=== PATIENT | female | born 1945 | race Caucasian/White ===

== ENCOUNTER 2016-09-24 09:46 | Outpatient (CLI) ==
[2016-09-24] MEDS ORDERED: PROLIA SUBCUT STA (10:03)
== END 2016-09-24 09:47 | disposition home or self-care (01) ==
LOC: OPMED 09:46
PROVIDERS: ATTEND Family Medicine
DX: M81.0 Age-related osteoporosis without current pathological fracture (principal)
CPT/HCPCS: 96372

== ENCOUNTER 2016-10-01 13:00 | Outpatient (RCR) ==
--- NOTE | 2016-09-11 16:40 | RS.OPPTEV2 ---
Date of Note: 09/10/16 Visit #: 1 Date of Evaluation: 09/10/16 Payer Source: MEDICARE Surgery Performed?: No Treatment Diagnosis: Low back pain Prior Level of Function.....Patient was independent with: ADL's, Self Care, Caregiving, Ambulation/Mobility, Community Integration/Access Functional Limitations: Self Care, ADL's, Reaching, Pushing, Pulling, Lifting, Carrying, Standing, Bending, Squatting, Ambulation Current Subjective/complaints:: Patient reports low back and hip pain. States she has been receiving injections from Pain Management every 3 months for approximately 4 1/2 years. Reports standing is what really bothers her back and hips. Sitting gives her quick relief. She reports pain into the hips, but not any further into the legs. She denies tingling or numbness in the LE's. She does notice leg weakness. 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 Medical History Medical History: Hypertension, CVA/TIA, Arthritis Medical History Comments:: Scoliosis Smoking Status: Never smoker Hx Home Medications: Norvasc, synthroid, zoloft, cozar, mobic, lortab, norco Patient's Goals: Her goal is to get any relief of back pain. Pain Assessment - Pain Description Pain Location: low back and hip pain Current Pain Intensity: 3/10 Worst Pain Intensity: 5/10 Functional Outcome Measure Oswestry LBP: 42 - G Codes & Severity Modifier G Codes & Modifier: Mobility current CK. Mobility goal CJ Source of G Code score: Oswestry LBP scale Observation - Observation Posture: Forward Head, Rounded Shoulders, Scapula Asymmetry (right significantly higher), Scoliosis (severe curvature) Comments: Patient demonstrates right thoracic convexity and left lumbar convexity. Gait - Gait Pattern Gait Comments: Patient ambulates without an assistive device with trunk lean to her right. - ROM Lumbar Flexion: Hand reach to patellae Sidebending to Left: Reach to Mid-thigh Sidebending to Right: Reach to Lateral Joint Line Lumbar Spine ROM Limitations: Soft Tissue Tightness, Bony Restriction (left side bend limited by curvature of spine) Comments: Lower trunk rotation to the right is limited, rotation to the left is functional. Bilateral LE AROM is WFL's. - Strength Trunk Rotation: 4+ Good + Comments: LE strength hips 4 to 4+ throughout. Knees and ankles 5/5 throughout. - Special Tests SLR Test: Negative Left, Negative Right Seated Dural Stretch Test: Negative Left, Negative Right SI Joint Compression: Negative SI Joint Distraction: Negative Palpation Comments:: Patient reports no tenderness along the thoracic or lumbar spine. No tenderness along the SI joints. Sensation - Sensation Right Lower Extremity: Intact/Normal Left Lower Extremity: Intact/Normal Additional Comments: Additional Comments: Right SLR tighter than the left. In supine, Right SLR to 35 degrees, left 40-45 degrees. Interventions - Exercise/Activities/Manual Therapy Exercises/Activities: NA Manual Therapy: NA - Charges Total Direct Minutes: 55 mins Total Treatment Time: 55 mins Procedures billed for this date of service:: EVAL Low Assessment Assessment: Patient presents with complaints of low back and hip pain. She exhibits significant curvature of the thoracic and lumbar spine, which is more than likely the reason for her pain. She demonstrates an imbalance of muscle length along the spine and in the LE's. She will benefit from stretching and strengthening exercises to help decrease pain in the back and hips. Patient Education: Education of diagnosis, Body/Joint mechanics, Home Exercise Program, Home Safety, Activity Modification, Education of Plan of Care Rehab Potential: Fair Short Term Goals Goal #1: Pt independent in basic HEP. Goal to be met by: 09/25/16 Goal #2: Bilateral SLR to 45 degrees. Goal to be met by: 09/25/16 Goal #3: Lower trunk rotation to the right WFL's. 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 Goal to be met by: 10/15/16 Goal #2: Score on Oswestry LBP scale improved to 32. Goal to be met by: 10/15/16 Goal #3: Pt able to stand and ambulate as needed with minimal low back or hip pain. Goal to be met by: 10/15/16 Plan - Treatment to be Provided Procedures: Therapeutic Exercises, Therapeutic Activity, Patient Education Modalities: Hot Packs - Treatment Plan Frequency: 2-3 X week Duration: 4 weeks ORDER # VISITS AND/OR THROUGH DATE: 10/15/16 - Treatment Code (1) Low back pain Qualifiers: Chronicity: chronic Back pain laterality: bilateral Sciatica presence: unspecified whether sciatica present Qualified Description: Chronic bilateral low back pain, with sciatica presence unspecified Qualifier Code(s): (M54.5) Low back pain, (G89.29) Other chronic pain (2) Hip pain Qualifiers: Laterality: bilateral Qualified Description: Pain of both hip joints Qualifier Code(s): (M25.551) Pain in right hip, (M25.552) Pain in left hip (3) Scoliosis deformity of spine Qualifiers: Scoliosis type: unspecified scoliosis Spinal region: thoracolumbar Qualified Description: Scoliosis of thoracolumbar spine, unspecified scoliosis type Qualifier Code(s): (M41.9) Scoliosis, unspecified (4) Lumbar disc disease with radiculopathy Comments: M51.16
--- NOTE | 2016-09-17 14:55 | RS.OPPTDN ---
Subjective Date of Note: 09/17/16 Visit #: 2 Date of Evaluation: 09/10/16 Payer Source: MEDICARE Treatment Diagnosis: Low back pain Current Subjective/complaints:: Patient says her back "hurts like usual." She c /o L scapular pain as well as back pain. She says she has no pain at bedtime or any trouble sleeping. Pain Assessment - Pain Description Pain Location: low back and hip pain Current Pain Intensity: 10 - Heat/Cryotherapy Treatment: Hot Pack (upper/mid/low back x 15 mins supine) Interventions - Exercise/Activities/Manual Therapy Exercises/Activities: Began passive stretching to the R more than L: SKTC, HS, Piriformis, Lower trunk rotation. R sidelying with L UE over head to stretch L scap. Began trunk stability/strengthening (R): ball squeezes, isometric hip flexion/abd, SLR, QS. Sitting: shoulder shrugs/scap adduction, Red tband scap retraction, x 10. Standing against wall: postural straightening, bilateral shoulder flexion with 1# wand against the wall. Total minutes of Exercise: 30 Manual Therapy: NA HOME EXERCISE PROGRAM: pillow squeezes, scapular adduction, shoulder shrugs - Charges Total Direct Minutes: 30 Total Treatment Time: 45 Procedures billed for this date of service:: hp, ex2 Assessment: Patient admits mid to low back pain that extends to the knees intermittently. Also, pain to the L scapula. Symptoms did relieve with treatment today. Patient Education: Education of diagnosis, Body/Joint mechanics, Home Exercise Program, Home Safety, Activity Modification, Education of Plan of Care Short Term Goals Goal #1: Pt independent in basic HEP. Goal to be met by: 09/25/16 Goal #2: Bilateral SLR to 45 degrees. Goal to be met by: 09/25/16 Goal #3: Lower trunk rotation to the right WFL's. 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 Goal to be met by: 10/15/16 Goal #2: Score on Oswestry LBP scale improved to 32. Goal to be met by: 10/15/16 Goal #3: Pt able to stand and ambulate as needed with minimal low back or hip pain. Goal to be met by: 10/15/16 Plan PLAN OF CARE EXPIRES ON:: 10/15/16 ORDER # VISITS AND/OR THROUGH DATE: 10/15/16 PLAN: Continue Plan of Care
--- NOTE | 2016-09-24 14:27 | RS.OPPTDN ---
Subjective Date of Note: 09/24/16 Visit #: 3 Date of Evaluation: 09/10/16 Payer Source: MEDICARE Treatment Diagnosis: Low back pain Current Subjective/complaints:: Patient states she just had fatigue after her last session. States her back is "ok" today. Pain Assessment - Pain Description Pain Location: low back and hip pain Current Pain Intensity: 08/15 - Heat/Cryotherapy Treatment: Hot Pack (20 mins mid to low back supine) Interventions - Exercise/Activities/Manual Therapy Exercises/Activities: Began passive stretching to the R more than L: SKTC, HS, Piriformis, Lower trunk rotation. R sidelying with L UE over head to stretch L scap. Began trunk stability/strengthening (R): ball squeezes, isometric hip flexion/abd, SLR, QS. Attempted 1-2 bridges, but caused cramp to L HS. Sitting: shoulder shrugs/scap adduction, Red tband scap retraction, x 10. Standing against wall: postural straightening, bilateral shoulder flexion with 1# wand against the wall, wall slides with 5 minisquats. Total minutes of Exercise: 30 Manual Therapy: NA HOME EXERCISE PROGRAM: pillow squeezes, scapular adduction, shoulder shrugs - Charges Total Direct Minutes: 30 Total Treatment Time: 50 Procedures billed for this date of service:: hp, ex2 Assessment: Patient has difficulty erendira stretching to the mid thoracic and scapular strengthening. Tightness remains to the R LE. Patient Education: Education of diagnosis, Body/Joint mechanics, Home Exercise Program, Home Safety, Activity Modification, Education of Plan of Care Patient demonstrates compliance with HEP?: Yes Short Term Goals Goal #1: Pt independent in basic HEP. Goal to be met by: 09/25/16 Progress towards Goal:: Progressing Goal #2: Bilateral SLR to 45 degrees. Goal to be met by: 09/25/16 Goal #3: Lower trunk rotation to the right WFL's. Goal to be met by: 09/25/16 Jail Goals Goal #1: Pt knows HEP and to continue ex's to maintain level of function at D/C. Goal to be met by: 10/15/16 Goal #2: Score on Oswestry LBP scale improved to 32. Goal to be met by: 10/15/16 Goal #3: Pt able to stand and ambulate as needed with minimal low back or hip pain. Goal to be met by: 10/15/16 Plan PLAN OF CARE EXPIRES ON:: 10/15/16 ORDER # VISITS AND/OR THROUGH DATE: 10/15/16 PLAN: Progress Exercises
--- NOTE | 2016-10-01 14:29 | RS.OPPTDN ---
Subjective Date of Note: 10/01/16 Visit #: 4 Date of Evaluation: 09/10/16 Payer Source: MEDICARE Treatment Diagnosis: Low back pain Current Subjective/complaints:: Patient reports again today the back is about the same,"no better yet,but not worse either . " Pain Assessment - Pain Description Pain Location: low back and hip pain Pain Description: Aching Current Pain Intensity: 0 at rest,increases the longer she stands - Heat/Cryotherapy Treatment: Hot Pack (20 mins. prior to exercises) Interventions - Exercise/Activities/Manual Therapy Exercises/Activities: 35 mins. total ,patient education for body mechanics / positioning for scoliosis stretches.Pelvic tilts,SLTC,piriformis stretches, supine stretches,SI muscle energy of resisted hip flexion,resisted knee extension to reduce LE length discrepancy/Lateral shifting to both LE's simultaneously for streching the lateral trunk muscles. Total minutes of Exercise: 35 Manual Therapy: NA Total minutes of Manual Therapy: 0 HOME EXERCISE PROGRAM: pillow squeezes, scapular adduction, shoulder shrugs - Charges Total Direct Minutes: 35 Total Treatment Time: 55 Procedures billed for this date of service:: hp,ex 2 Assessment: Patient tolerates exercises well today,stretch discomfort only ,no elevated back pain during treatment.She has reduced leg length discrepancy after SI muscle energy today.Recommended for her to occasionally sleep on opposite side that she normally does to assist with scoliosis . Patient Education: Education of diagnosis, Body/Joint mechanics, Home Exercise Program, Activity Modification Patient demonstrates compliance with HEP?: Yes Short Term Goals Goal #1: Pt independent in basic HEP. Goal to be met by: 09/25/16 Progress towards Goal:: Progressing Goal #2: Bilateral SLR to 45 degrees. Goal to be met by: 09/25/16 Progress towards Goal:: Progressing Goal #3: Lower trunk rotation to the right WFL's. Goal to be met by: 09/25/16 Progress towards Goal:: Progressing Fpc Goals Goal #1: Pt knows HEP and to continue ex's to maintain level of function at D/C. Goal to be met by: 10/15/16 Progress towards goal: Progressing Goal #2: Score on Oswestry LBP scale improved to 32. Goal to be met by: 10/15/16 Goal #3: Pt able to stand and ambulate as needed with minimal low back or hip pain. Goal to be met by: 10/15/16 Plan PLAN OF CARE EXPIRES ON:: 10/15/16 ORDER # VISITS AND/OR THROUGH DATE: 10/15/16 PLAN: Continue Plan of Care
== END 2016-10-05 ==
PROVIDERS: ATTEND Pain Medicine Interventional Pain Medicine
DX: M51.16 Intervertebral disc disorders with radiculopathy, lumbar region (principal)

== ENCOUNTER 2016-10-14 13:00 | Outpatient (RCR) ==
--- NOTE | 2016-10-08 15:45 | RS.OPPTDN ---
Subjective Date of Note: 10/08/16 Visit #: 5 Date of Evaluation: 09/10/16 Payer Source: MEDICARE Treatment Diagnosis: Low back pain Current Subjective/complaints:: Patient reports she is wearing an insole in the R shoe today due to leg length difference caused by her scoliosis. Pain Assessment - Pain Description Pain Location: low back and hip pain Current Pain Intensity: 0 at rest - Heat/Cryotherapy Treatment: Hot Pack (20 mins. prior to exercises) Interventions - Exercise/Activities/Manual Therapy Exercises/Activities: 30 mins. total ,patient education for body mechanics / positioning for scoliosis stretches.Pelvic tilts,SLTC,piriformis stretches, supine stretches,SI muscle energy of resisted hip flexion,resisted knee extension to reduce LE length discrepancy. Total minutes of Exercise: 30 Manual Therapy: NA Total minutes of Manual Therapy: 0 HOME EXERCISE PROGRAM: pillow squeezes, scapular adduction, shoulder shrugs - Charges Total Direct Minutes: 30 Total Treatment Time: 50 Procedures billed for this date of service:: hp,ex 2 Assessment: Patient reports less stretch discomfort in the lumbar area today, along with improved hamstring extensibility bilaterally.She is tender to palpate the trochanter region on the L,as opposed to the R.She is attentive and compliant to HEP. Patient Education: Education of diagnosis, Body/Joint mechanics, Home Exercise Program, Home Safety, Activity Modification, Education of Plan of Care Patient demonstrates compliance with HEP?: Yes Short Term Goals Goal #1: Pt independent in basic HEP. Goal to be met by: 09/25/16 Progress towards Goal:: Progressing Goal #2: Bilateral SLR to 45 degrees. Goal to be met by: 09/25/16 Progress towards Goal:: Progressing Goal #3: Lower trunk rotation to the right WFL's. 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 Goal to be met by: 10/15/16 Progress towards goal: Progressing Goal #2: Score on Oswestry LBP scale improved to 32. Goal to be met by: 10/15/16 Goal #3: Pt able to stand and ambulate as needed with minimal low back or hip pain. Goal to be met by: 10/15/16 Progress towards goal: Progressing Plan PLAN OF CARE EXPIRES ON:: 10/15/16 ORDER # VISITS AND/OR THROUGH DATE: 10/15/16 PLAN: Continue Plan of Care
--- NOTE | 2016-10-14 14:20 | RS.OPPTDN ---
Subjective Date of Note: 10/14/16 Visit #: 6 Date of Evaluation: 09/10/16 Payer Source: MEDICARE Treatment Diagnosis: Low back pain Current Subjective/complaints:: Patient reports no significant change ,the back pain is about the same.She is agreeable to D/C plan today.She feels she knows the exercises well. Pain Assessment - Pain Description Pain Location: low back and hip pain Current Pain Intensity: 0 at rest,increases after she is on her feet ~ 30 to 40 mins. for ADL's - Heat/Cryotherapy Treatment: Hot Pack (20 mins. to lumbar in sitting position prior to supine exercises) Interventions - Exercise/Activities/Manual Therapy Exercises/Activities: 25 mins. total .Pelvic tilts,SKTC,piriformis stretches,90/ 90 hamstring stretches,LTR in hooklying position.HEP review of same. Total minutes of Exercise: 20 Manual Therapy: NA Total minutes of Manual Therapy: 0 HOME EXERCISE PROGRAM: Pelvic tilts,SKTC,90/90 hams. stretches,LTR in hooklying, piriformis stretches. - Charges Total Direct Minutes: 25 Total Treatment Time: 45 Procedures billed for this date of service:: hp,ex 2 Assessment: Patient has improved knowledge of HEP.low back protection ,but reports only temporary relief after PT sessions.She is agreeable to continuing her HEP independently,plans to return to pain management clinic for possible injection if Dr. Salcido agrees. Patient Education: Body/Joint mechanics, Home Exercise Program, Education of Plan of Care Patient demonstrates compliance with HEP?: Yes Short Term Goals Goal #1: Pt independent in basic HEP. Goal to be met by: 09/25/16 Progress towards Goal:: Met Goal #2: Bilateral SLR to 45 degrees. Goal to be met by: 09/25/16 Progress towards Goal:: No Change Goal #3: Lower trunk rotation to the right WFL's. Goal to be met by: 09/25/16 Progress towards Goal:: No Change Detention Goals Goal #1: Pt knows HEP and to continue ex's to maintain level of function at D/C. Goal to be met by: 10/15/16 Progress towards goal: Met Goal #2: Score on Oswestry LBP scale improved to 32. Goal to be met by: 10/15/16 (42) Progress towards goal: No Change Goal #3: Pt able to stand and ambulate as needed with minimal low back or hip pain. Goal to be met by: 10/15/16 (30 - 40 mins. then painful) Progress towards goal: No Change Plan PLAN OF CARE EXPIRES ON:: 10/15/16 ORDER # VISITS AND/OR THROUGH DATE: 10/15/16 PLAN: Plan for Discharge
--- NOTE | 2016-11-18 14:45 | RS.OPPTDC ---
Date of Discharge: 10/14/16 Date of Evaluation: 09/10/16 Number of Visits: 6 Treatment Diagnosis: Low back pain Current Complaints/Gains: Patient reports only temporary relief with therapy. States "NO worse or no better" regarding back pain. Pain Assessment - Pain Description Pain Location: low back and hip pain Current Pain Intensity: 0 at rest,increases after she is on her feet ~ 30 to 40 mins. for ADL's Functional Outcome Measure Oswestry LBP: 42 - G Codes & Severity Modifier G Codes & Modifier: Mob goal CJ. Mob D/C CK Source of G Code score: Oswestry Interventions - Exercise/Activities/Manual Therapy Exercises/Activities: NA Manual Therapy: NA HOME EXERCISE PROGRAM: Pelvic tilts,SKTC,90/90 hams. stretches,LTR in hooklying, piriformis stretches. - Objective Findings Observations,measurements,etc.: No significant measurable changes compared to the initial evaluation. LE and lumbar flexibility continue to be limited. - Charges Total Direct Minutes: NA Total Treatment Time: NA Procedures billed for this date of service:: NA Assessment Assessment: Patient reports only temporary benefit. She demonstrates significant curvature of the spine and believes that she is going to have to live with a certain amount of pain. She has gained postural awareness and is independent with a HEP. Short Term Goals Goal #1: Pt independent in basic HEP. Goal to be met by: 09/25/16 Progress towards Goal:: Met Goal #2: Bilateral SLR to 45 degrees. Goal to be met by: 09/25/16 Progress towards Goal:: Not Met Goal #3: Lower trunk rotation to the right WFL's. 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 Goal to be met by: 10/15/16 Progress towards goal: Met Goal #2: Score on Oswestry LBP scale improved to 32. Goal to be met by: 10/15/16 (42) Progress towards goal: Not Met Goal #3: Pt able to stand and ambulate as needed with minimal low back or hip pain. Goal to be met by: 10/15/16 (30 - 40 mins. then painful) Progress towards goal: Not Met Plan Reason for Discharge:: Lack of Progress
== END 2016-11-05 ==
PROVIDERS: ATTEND Pain Medicine Interventional Pain Medicine
DX: M51.16 Intervertebral disc disorders with radiculopathy, lumbar region (principal)

== ENCOUNTER 2017-03-27 09:01 | Outpatient (CLI) ==
[2017-03-27] MEDS ORDERED: PROLIA SUBCUT STA (09:45)
[2017-03-27 09:51] VITALS: BP 115/68; TEMP 98.4
== END 2017-03-27 09:02 | disposition home or self-care (01) ==
LOC: OPMED 09:01
PROVIDERS: ATTEND Family Medicine
DX: M81.0 Age-related osteoporosis without current pathological fracture (principal)
CPT/HCPCS: 96372

== ENCOUNTER 2017-09-21 07:09 | Day surgery (SDC) ==
[2017-09-21] MEDS ORDERED: LIDOCAINE 1% 20 ML MDV ID STA (07:33)
[2017-09-21] MEDS ORDERED: LIDOCAINE HCL 2% LUER-JET ONE (09:15)
[2017-09-21] MEDS ORDERED: DIPRIVAN 20 ML VIAL IVP ONE (09:15)
[2017-09-21] MEDS ORDERED: VERSED ONE (09:15)
[2017-09-21 10:24] VITALS: BP 110/67; TEMP 98.6
--- NOTE | 2017-09-22 09:58 | OP ---
PROCEDURE: EGD (ESOPHAGOGASTRODUODENOSCOPY). ENDOSCOPIST: Bob RODRGÍUEZ M.D. INDICATION: HEME POSITIVE STOOL INSTRUMENT: GIFH-190. MEDICATION: PER ANESTHESIA. PROCEDURE: The patient was positioned for endoscopy. The oropharynx was sprayed with Cetacaine spray and the endoscope was advanced through the bite block into the esophagus and from there advanced to the duodenum. The duodenum was normal. The pylorus was patent. The antrum is normal. Retroflex exam reveals small hiatal hernia. The Z-line is regular at 36cm. The esophagus is otherwise normal. PLAN: 1. Continue all current medication for acid reflux. MTDD
--- NOTE | 2017-09-22 10:02 | OP ---
PROCEDURE: COLONOSCOPY TO THE CECUM. ENDOSCOPIST: Bob RODRÍGUEZ M.D. INDICATION: HEME POSITIVE STOOL INSTRUMENT: PCFH-190. MEDICATION: PER ANESTHESIA. PROCEDURE: The patient was positioned for colonoscopy. The digital rectal exam was negative. The colonoscope was inserted through the anus and advanced to the cecum. The cecum was identified using the ileocecal valve and the appendiceal orifice as landmarks. The scope was slowly withdrawn through an adequately prepped colon. The [place] Bowel Prep Score equals 9. Two small polyps removed at 60cm using snare cautery. A 3rd small polyp at 30cm removed using snare cautery. Diverticuli noted in the left colon. The retroflex exam was otherwise normal. The patient tolerated the procedure without immediate complication. Withdraw time 13 minutes and 30 seconds. PLAN: 1. Suggest repeat colonoscopy in 5 years 2. We will get a CT enterography to complete her evaluation CC: Marlon DE LUNA
== END 2017-09-21 10:20 | disposition home or self-care (01) ==
LOC: SURG 07:09
PROVIDERS: ATTEND Internal Medicine Gastroenterology
DX: R19.5 Other fecal abnormalities (principal); D12.4 Benign neoplasm of descending colon; D12.5 Benign neoplasm of sigmoid colon; K57.30 Diverticulosis of large intestine without perforation or abscess without bleeding; K44.9 Diaphragmatic hernia without obstruction or gangrene; K21.9 Gastro-esophageal reflux disease without esophagitis

== ENCOUNTER 2017-09-30 07:54 | Outpatient (CLI) | payer OTHER ==
[2017-09-30 08:25] VITALS: BP 120/78; TEMP 98.2
[2017-09-30] MEDS ORDERED: PROLIA SUBCUT STA (08:26)
== END 2017-09-30 07:55 | disposition home or self-care (01) ==
LOC: OPMED 07:54
PROVIDERS: ATTEND Family Medicine
DX: M81.0 Age-related osteoporosis without current pathological fracture (principal)
CPT/HCPCS: 96372

== ENCOUNTER 2018-04-02 08:02 | Outpatient (CLI) | payer OTHER ==
[2018-04-02 08:20] VITALS: BP 130/72; TEMP 97.8
[2018-04-02] MEDS: PROLIA SUBCUT STA (08:24)
== END 2018-04-02 08:03 | disposition home or self-care (01) ==
LOC: OPMED 08:02
PROVIDERS: ATTEND Family Medicine
DX: M81.0 Age-related osteoporosis without current pathological fracture (principal)
CPT/HCPCS: 96372

== ENCOUNTER 2018-10-14 07:53 | Outpatient (CLI) ==
[2018-10-14] MEDS ORDERED: PROLIA SUBCUT STA (09:00)
[2018-10-14 09:03] VITALS: BP 125/74; TEMP 98.2
== END 2018-10-14 07:54 | disposition home or self-care (01) ==
LOC: OPMED 07:53
PROVIDERS: ATTEND Family Medicine
DX: M81.0 Age-related osteoporosis without current pathological fracture (principal)
CPT/HCPCS: 96372